=== PATIENT | female | born 1965 | race African-American/Black ===

== ENCOUNTER 2017-09-11 01:28 | Emergency (ER) | payer SELFPAY ==
[2017-09-11 02:27] VITALS: BP 150/88; PULSE 105; TEMP 98.5; BMI 31.6
[2017-09-11] MEDS ORDERED: FAMOTIDINE 20 MG/50 ML IVPB 20 MG/50 ML MG IVPB ONE (02:53)
--- NOTE | 2017-09-11 02:53 | PDOC ---
History of Present Illness - General Chief Complaint: Pain Stated Complaint: CHEST DISCOMFORT Time Seen by Provider: 09/11/17 02:34 History Source: Patient - History of Present Illness Initial Comments: 09/11/17 04:36 51 year old female with epigastric pain worse with laying down and cough denies NVD, left arm pain, diphoresis, pleurisy. pmhx: hypertension. Past History - Past Medical History Allergies/Adverse Reactions: Allergies Allergy/AdvReac Type Severity Reaction Status Date / Time No Known Allergies Allergy Verified 09/11/17 02:25 Home Medications: Ambulatory Orders Amlodipine Besylate [Norvasc -] 10 mg PO DAILY 09/11/17 Famotidine [Pepcid -] 40 mg PO DAILY #30 tablet 09/11/17 Hydrochlorothiazide [Hctz -] 25 mg PO DAILY 09/11/17 COPD: No HTN: Yes - Suicide/Smoking/Psychosocial Hx Smoking History: Never smoked Have you smoked in the past 12 months: No Information on smoking cessation initiated: No Hx Alcohol Use: No Drug/Substance Use Hx: No Substance Use Type: None Review of Systems - Review of Systems Able to Perform ROS?: Yes Is the patient limited [place] proficient: No Constitutional: No: Symptoms Reported, See HPI, Chills, Diaphoresis, Fever, Loss of Appetite, Malaise, Night Sweats, Weakness, Weight Stable, Unintentional Wgt. Loss, Unexplained wgt Loss, Other HEENTM: No: Symptoms Reported, See HPI, Eye Pain, Blurred Vision, Tearing, Recent change in vision, Double Vision, Cataracts, Ear Pain, Ocular Prothesis, Ear Discharge, Nose Pain, Nose Congestion, Tinnitus, Nose Bleeding, Hearing Loss , Throat Pain, Throat Swelling, Mouth Pain, Dental Problems, Difficulty Swallowing, Mouth Swelling, Other Respiratory: Yes: Cough. No: Symptoms reported, See HPI, Orthopnea, Shortness of Breath, SOB with Exertion, SOB at Rest, Stridor, Wheezing, Productive cough, Hemoptysis, Other Cardiac (ROS): Yes: Chest Pain. No: Symptoms Reported, See HPI, Edema, Irregular Heart Rate, Lightheadedness, Palpitations, Syncope, Chest Tightness, Other ABD/GI: Yes: Abdominal cramping (epigastric pain) : No: Symptoms Reported, See HPI, Burning, Dysuria, Discharge, Frequency, Flank Pain, Hematuria, Incontinence, Pain, Urgency, Testicular Mass, Testicular Swelling, Lesions, Testicular Pain, Other Musculoskeletal: No: Symptoms Reported, See HPI, Back Pain, Gout, Joint Pain, Joint Swelling, Muscle Pain, Muscle Weakness, Neck Pain, Joint Stiffness, Other Neurological: No: Symptoms reported, See HPI, Headache, Numbness, Paresthesia, Pre-Existing Deficit, Seizure, Tingling, Tremors, Weakness, Unsteady Gait, Ataxia, Dizziness, Other *Physical Exam - Vital Signs Last Vital Signs Temp Pulse Resp BP Pulse Ox 98.5 F 105 H 14 150/88 100 09/11/17 02:26 09/11/17 02:26 09/11/17 02:26 09/11/17 02:26 09/11/17 02:50 - Physical Exam General Appearance: Yes: Appropriately Dressed Respiratory/Chest: positive: Lungs Clear, Normal Breath Sounds. negative: Chest Tender Cardiovascular: positive: Regular Rhythm, Regular Rate Gastrointestinal/Abdominal: positive: Normal Bowel Sounds, Soft Musculoskeletal: positive: Normal Inspection Extremity: positive: Normal Capillary Refill, Normal Inspection, Normal Range of Motion Integumentary: positive: Normal Color, Dry, Warm Neurologic: positive: Fully Oriented, Alert, Normal Mood/Affect Heart Score/ECG Review - ECG Intrepretation Rhythm: Regular Rhythm Comment:: 09/11/17 04:48 normal sinus rhythm : 90bpm prolonged QT 380/ 464 ms ED Treatment Course - LABORATORY CBC & Chemistry Diagram: 09/11/17 03:10 09/11/17 03:10 Medical Decision Making - Medical Decision Making A: chest pain cbc cmp troponin EKG chest xray 09/11/17 04:35 reports feeling better. likely gastritis vs GERD 09/11/17 04:41 *DC/Admit/Observation/Transfer Diagnosis at time of Disposition: Gastritis, bile acid reflux, Chest pain of uncertain etiology Gastritis Qualifiers: Gastritis type: unspecified gastritis Chronicity: acute Gastritis bleeding: without bleeding Qualified Code(s): K29.00 - Acute gastritis without bleeding - Discharge Dispostion Disposition: HOME - Prescriptions Prescriptions: Famotidine [Pepcid -] 40 mg PO DAILY #30 tablet - Referrals Referrals: Narendra Camp MD [Staff Physician] - - Patient Instructions Printed Discharge Instructions: Gastroesophageal Reflux Disease (Alternative Therapy) Additional Instructions: start a bland diet eat > 2 hours before bedtime take pepcid as prescribed. follow up with your doctor as soon as possible return to the ER if symptoms worsen - Post Discharge Activity
[2017-09-11] MEDS ORDERED: ASPIRIN 81 MG CHEWABLE TABLETS ONE (02:55)
[2017-09-11] MEDS ORDERED: ASPIRIN COATED 81 MG TABLET.EC PO ONE (03:00)
[2017-09-11 03:26] LABS: BASO % 0.3 % (0-2.0); EOS % 1.3 % (0-4.5); HEMATOCRIT 42.1 % (32.4-45.2); LYMPH % 6.9 % (8-40); MCH 27.5 pg (25.7-33.7); MCHC 33.1 g/dl (32.0-36.0); MONO % 8.7 % (3.8-10.2); NEUT % 82.8 % (42.8-82.8); PLATELET COUNT 272 K/MM3 (134-434); RBC 5.07 M/mm3 (3.60-5.2); RDW 13.5 % (11.6-15.6); WHITE BLOOD COUNT 7.9 K/mm3 (4.0-10.0)
[2017-09-11 03:52] LABS: ALBUMIN 3.9 g/dl (3.4-5.0); ANION GAP 8 (8-16); BILIRUBIN,TOTAL 0.3 mg/dL (0.2-1.0); BLOOD UREA NITROGEN 13 mg/dL (7-18); CALCIUM 8.5 mg/dL (8.5-10.1); CHLORIDE 105 mmol/L (98-107); CO2 29 mmol/L (21-32); CREATININE 0.7 mg/dL (0.55-1.02); GLUCOSE,RANDOM 105 mg/dL (74-106); LIPASE 128 U/L (73-393); POTASSIUM 3.4 mmol/L (3.5-5.1); SGOT/AST 12 U/L (15-37); SGPT/ALT 17 U/L (12-78); SODIUM 142 mmol/L (136-145); TOT PROT 7.4 g/dl (6.4-8.2)
[2017-09-11 03:53] LABS: ALK PHOS 80 U/L (45-117)
[2017-09-11 04:21] LABS: URINE APPEARANCE CLEAR; URINE BILIRUBIN NEGATIVE (NEGATIVE); URINE BLOOD 2+ (NEGATIVE); URINE COLOR STRAW; URINE GLUCOSE (UA) NEGATIVE (NEGATIVE); URINE KETONE NEGATIVE (NEGATIVE); URINE LEUK ESTERASE TRACE (NEGATIVE); URINE NITRITE NEGATIVE (NEGATIVE); URINE PROTEIN NEGATIVE (NEGATIVE); URINE UROBILINOGEN NEGATIVE mg/dL (0.2-1.0)
[2017-09-11 04:37] LABS: EPI CELLS RARE /HPF (FEW)
--- NOTE | 2017-09-11 08:36 | EKG ---
Test Reason : Blood Pressure : / mmHG Vent. Rate : 090 BPM Atrial Rate : 090 BPM P-R Int : 170 ms QRS Dur : 076 ms QT Int : 380 ms P-R-T Axes : 065 011 017 degrees QTc Int : 464 ms NORMAL SINUS RHYTHM NONSPECIFIC T WAVE ABNORMALITY PROLONGED QT Confirmed by Benito Lazaro MD ([id number]) on 09/11/2017 8:36:16 AM Referred By: Confirmed By:Benito Lazaro MD
== END 2017-09-11 05:01 | disposition home or self-care (01) ==
LOC: JER 01:28
PROC: 3E033GC Introduction of Other Therapeutic Substance into Peripheral Vein, Percutaneous Approach (ICD-10-PCS; principal; 2017-09-11)
DX: K29.60 Other gastritis without bleeding (principal); K21.9 Gastro-esophageal reflux disease without esophagitis
CPT/HCPCS: 36415; 71046-TC-FY; 80053; 81003; 81015; 82550; 83690; 84484; 84703; 85025; 93005; 93010; 99285-25

== ENCOUNTER 2019-07-31 07:40 | Day surgery (SDC) | payer OTHER ==
--- NOTE | 2019-07-28 09:12 | HP ---
Admitting History and Physical - Primary Care Physician PCP: Kush Raymond - Admission Chief Complaint: right breast cancer History of Present Illness: 53 year old perimenapausal female with no family H/O breast cancer who was found to have a suspicious mammogram and US 04/2019. It showed a right density 12:00 1.3 cm 7 cm FN with a separate 11:00 dnsity 8 cm FN. Diagnostic mammogram confirmed right 12:00 density and US core biopsy at 12:00( 05/2019) showed Invasive lobular carcinoma ER/CA+Her2-. The 11:00 density was not visualized at the time of the biopsy. 06/2019 Breast MRI showed .9 mass at 11 to 12:00 right breast newly dignosed breast cancer and suspicious right axillary lymph node suggesting US. Right axillary Us negative History Source: Patient Limitations to Obtaining History: No Limitations - Past Medical History Cardiovascular: Yes: HTN Additional Past Medical History: fibroids - Smoking History Smoking history: Never smoked Have you smoked in the past 12 months: No - Alcohol/Substance Use Hx Alcohol Use: No Home Medications - Allergies Allergies/Adverse Reactions: Allergies Allergy/AdvReac Type Severity Reaction Status Date / Time No Known Allergies Allergy Verified 09/11/17 02:25 - Home Medications Home Medications: Ambulatory Orders Amlodipine Besylate [Norvasc -] 10 mg PO DAILY 09/11/17 Famotidine [Pepcid -] 40 mg PO DAILY #30 tablet 09/11/17 Hydrochlorothiazide [Hctz -] 25 mg PO DAILY 09/11/17 Family Medical History Family History: Denies Physical Examination Constitutional: Yes: Well Nourished Breast(s): Yes: Other (D sized cups no palpable densitites or adnopathy bilaterally poist bx changes right 12:00) Problem List - Problems (1) Carcinoma of right breast Code(s): C50.911 - MALIGNANT NEOPLASM OF UNSP SITE OF RIGHT FEMALE BREAST Qualifiers: Breast location: overlapping sites of breast Estrogen receptor status: positive Patient sex: female Qualified Code(s): C50.811 - Malignant neoplasm of overlapping sites of right female breast; Z17.0 - Estrogen receptor positive status [ER+] Assessment/Plan Right breast wide excision, mammogram needle localization. sentenel node biospy , possible axillary node dissection, lymphoscintogram
[2019-07-28 10:00] VITALS: BMI 33.9
[2019-07-31] MEDS ORDERED: LIDOCAINE HCL 1%, 10 MG/ML (20ML VIAL) ONE ×2 (12:28→12:37)
[2019-07-31] MEDS ORDERED: BUPIVACAINE HCL 0.25% 125 MG/50 ML VIAL ONE (12:37)
[2019-07-31] MEDS ORDERED: ISOSULFAN BLUE 10 MG/ML VIAL SQ ONE (12:37)
[2019-07-31] MEDS ORDERED: MIDAZOLAM HCL 2 MG/2 ML SINGLE DOSE VIAL ONE (13:02)
[2019-07-31] MEDS ORDERED: PROPOFOL 20 ML ONE ×4 (13:07→14:01)
[2019-07-31] MEDS ORDERED: SUCCINYLCHOLINE CHLORIDE 200 MG/10 ML SYRINGE ONE (13:07)
[2019-07-31] MEDS ORDERED: DEXAMETHASONE SOD PHOSPHATE 4 MG/1 ML VIAL ONE (13:12)
[2019-07-31] MEDS ORDERED: ONDANSETRON 4 MG/2 ML VIAL ONE ×2 (13:12→15:30)
[2019-07-31] MEDS ORDERED: ceFAZolin SODIUM 1 GM VIAL ONE (13:19)
[2019-07-31] MEDS ORDERED: ONDANSETRON 4 MG/2 ML VIAL IVPUSH PRN ×2 (14:17→15:11)
[2019-07-31] MEDS ORDERED: oxyCODONE HCL 5 MG TABLET PO PRN (14:17)
[2019-07-31] MEDS ORDERED: LACTATED RINGERS SOLUTION 1,000 ML IV SCH (14:30)
[2019-07-31] MEDS ORDERED: BUPIVACAINE HCL/PF 0.25% (2.5MG/ML) 10 ML VIAL IJ ONE (14:50)
[2019-07-31] MEDS ORDERED: KETOROLAC TROMETHAMINE 30 MG/1 ML VIAL IVPUSH PRN (15:11)
[2019-07-31] MEDS ORDERED: DEXTROSE 5%-0.45% SALINE 1,000 ML IV SCH (15:15)
[2019-07-31] MEDS ORDERED: KETOROLAC TROMETHAMINE 30 MG/1 ML VIAL ONE (15:30)
[2019-07-31 16:41] VITALS: TEMP 98
[2019-07-31 17:39] VITALS: BP 145/79; PULSE 72
--- NOTE | 2019-07-31 23:16 | OP ---
DATE OF OPERATION: 07/31/2019 PREOPERATIVE DIAGNOSIS: Right breast cancer, overlapping regions. POSTOPERATIVE DIAGNOSIS: Right breast cancer, overlapping regions. PROCEDURE: Right breast partial mastectomy with sentinel lymph node biopsy and mammographic needle localization with 5 x 4 cm tissue transfer closure. ANESTHESIA: General laryngeal mask airway anesthesia. SURGEON: Gloria Raymond MD. SYSTEM DEVELOPMENT MANAGER: KARTHIK Thacker. COMPLICATIONS: There were no complications. DESCRIPTION OF PROCEDURE: Briefly, the patient is a 53-year-old G1, P1 postmenopausal female of /[place] descent. She underwent a routine mammography April 2019 showing a right breast, 12 o'clock, 1.3-cm suspicious density 7 cm from the nipple with a separate right breast at 11 o'clock density 8 cm from the nipple. Ultrasound guided core biopsy showed the 12 o'clock density to be an infiltrating lobular cancer, which was ER/SD positive, HER2/alyx negative with a Ki-67 of 23%. The 11 o'clock density was no longer seen and felt to be benign. She had no adenopathy. MRI showed localized cancer. The patient was advised for undergoing a right breast partial mastectomy and sentinel lymph node biopsy. She was brought in for the procedure on July 31, 2019, and underwent a needle localization of the clip in the right breast 12 o'clock region as well as a lymphoscintigraphy at [facility] in the morning and then was brought to the [place] holding area. In the holding area, site verification was made, and informed consent as obtained. She was brought into the operating room, laid on the OR table in a supine position. Venodynes were placed on the lower extremities prior to induction. She received a gram of Ancef prior to incision. She underwent general laryngeal mask airway anesthesia, and the right breast was sterilely prepped and draped in the usual fashion with the wire prepped in the field. 3 mL of Lymphazurin blue were injected intradermally and peritumorally around the needle localization site at the 12 o'clock region of the right breast. Timeout was performed. The right breast sentinel lymph node biopsy was first performed. An incision was made just below the hair-bearing area of the right axilla and dissection was undertaken, and a blue lymphatic was easily seen coursing to a bluish hot lymph node with a 10-second gamma count of 1492, which was labeled sentinel lymph node 1 and sent to pathology in formalin. No other blue or hot nodes were found, and background counts after removal of this node was 227. Hemostasis was achieved, and the wound was copiously irrigated with warm, sterile saline. The active wound was then closed using a 2-0 plain suture to close the deep tissues, and then the skin was closed using interrupted 3-0 deep dermal Vicryl suture in a running 4-0 subcuticular Biosyn suture. The wide excision was then undertaken around the 12 o'clock region of the right breast. A curvilinear incision was made around the 12 o'clock region of the right breast just underneath the needle localization site. Dissection was undertaken around the needle localization, and the breast tissue was completely removed from around the wire with the wire in the middle of the specimen. The specimen was removed and was oriented with a long lateral, short superior suture, and specimen radiographs showed removal of the clip in question. Hemostasis was achieved. Separate margins were then taken on the superior, inferior, medial, lateral, deep, and anterior aspects, with the suture marking the biopsy cavity of each of these margins. They were each sent separately to pathology as specimen in formalin. Again, hemostasis was achieved. The wound was irrigated, and a 5 x 4 cm tissue transfer closure was accomplished by undermining the breast tissue and reapproximating the breast tissue to fill the defect using 2-0 plain suture. The skin was closed using interrupted 3-0 deep dermal Vicryl suture and a running 4-0 subcuticular Biosyn suture. Mastisol, Steri-Strips were applied over the wounds, and compressive dressing placed over this. She was placed in a surgical bra. The patient had laryngeal mask airway tube removed at the end of the case and will be recovered in the post anesthesia care unit. She will be recovered and then brought back to ambulatory surgery and discharged home the same day once discharge criteria are met. She will follow up in the office in 1 week for a formal wound pathology check. All sponge, needle counts were correct at the end of the case, and estimated blood loss was about 20 mL. GLORIA RAYMOND M.D. [id number]
--- NOTE | 2019-08-05 12:17 | PATH ---
Surgical Pathology Report Patient Name: ELTON CHADWICK [facility]. Rec. #: [id number] /Age/Gender: 1965 (Age: 53) / F Account: [id number] Location: [facility] AMBULATORY Taken: 07/31/2019 Received: 07/31/2019 Reported: 08/06/2019 Physicians: Kush Raymond M.D. Specimen(s) Received A: RIGHT AXILLARY SENTINEL LYMPH NODE #1 B: RIGHT BREAST WIDE EXCISION C: RIGHT BREAST SUPERIOR MARGIN D: RIGHT BREAST MEDIAL MARGIN E: RIGHT BREAST INFERIOR MARGIN F: RIGHT BREAST LATERAL MARGIN G: RIGHT BREAST DEEP MARGIN H: RIGHT BREAST ANTERIOR MARGIN Clinical History Invasive right 12:00 [facility] Final Diagnosis A. AXILLARY SENTINEL LYMPH NODE #1, RIGHT, EXCISION: ONE LYMPH NODE NEGATIVE FOR CARCINOMA ON H & E AND CONFIRMED BY CYTOKERATIN AE1/3 IMMUNOHISTOCHEMICAL STAIN (0/1). B. BREAST, RIGHT, WIDE EXCISION: INVASIVE LOBULAR CARCINOMA, CLASSICAL TYPE (TUBULE SCORE: 3/3, NUCLEAR GRADE: 2/3, MITOTIC SCORE: 1/3; TOTAL ARCADIO SCORE: 6/9). INVASIVE CARCINOMA MEASURES 1.9 CM IN GREATEST MICROSCOPIC DIMENSION. LOBULAR CARCINOMA IN SITU (LCIS), CLASSICAL TYPE. NO LYMPHOVASCULAR INVASION IDENTIFIED. SURGICAL MARGINS ARE UNINVOLVED BY CARCINOMA; INVASIVE CARCINOMA IS 5 MM FROM CLOSEST LATERAL MARGIN. SEE SPECIMEN C-H FOR FINAL MARGINS. PRIOR BIOPSY SITE CHANGES PRESENT. REMAINDER OF BREAST PARENCHYMA SHOWS ATYPICAL LOBULAR HYPERPLASIA AND FIBROCYSTIC CHANGES INCLUDING STROMAL FIBROSIS, MICROCYSTS, APOCRINE METAPLASIA, AND COLUMNAR CELL CHANGES. PATHOLOGIC STAGE (pTNM): pT1c pN0(sn). SEE INVASIVE CARCINOMA CASE SUMMARY BELOW. SEE COMMENT. C. BREAST, RIGHT, SUPERIOR MARGIN, EXCISION: LOBULAR CARCINOMA IN SITU (LCIS), CLASSICAL TYPE. D. BREAST, RIGHT, MEDIAL MARGIN, EXCISION: LOBULAR CARCINOMA IN SITU (LCIS), CLASSICAL TYPE. E. BREAST, RIGHT, INFERIOR MARGIN, EXCISION: BREAST PARENCHYMA WITH FOCAL ATYPICAL LOBULAR HYPERPLASIA. F. BREAST, RIGHT, LATERAL MARGIN, EXCISION: BENIGN BREAST PARENCHYMA. G. BREAST, RIGHT, DEEP MARGIN, EXCISION: BENIGN BREAST PARENCHYMA H. BREAST, RIGHT, ANTERIOR MARGIN, EXCISION: BENIGN BREAST PARENCHYMA. Comment: Immunohistochemical stains performed and interpreted at [facility] show the tumor is positive for cytokeratin AE1/3. E-Cadherin is negative in the invasive carcinoma and LCIS (blocks B2, D3, E2). Positive and negative controls (internal if applicable) show appropriate results. Comments Breast Invasive Carcinoma: Surgical Pathology Case Summary (Based on AJCC TNM 8 th edition) Procedure _X_ Excision (less than total mastectomy) Specimen Laterality _X_ Right Tumor Size _X_ Greatest dimension of largest invasive focus >1 mm (millimeters): 19 mm Histologic Type _X_ Invasive lobular carcinoma Histologic Grade ([place] Histologic Score) Glandular (Acinar)/Tubular Differentiation _X_ Score 3 (<10% of tumor area forming glandular/tubular structures) Nuclear Pleomorphism _X_ Score 2 Mitotic Rate _X_ Score 1 Overall Grade _X_ Grade 2 (scores of 6) Tumor Focality _X_ Single focus of invasive carcinoma Ductal Carcinoma In Situ (DCIS) _X_ No DCIS in specimen Margins Invasive Carcinoma Margins _X_ Uninvolved by invasive carcinoma Distance from closest margin (millimeters): 5 mm in wide excision (B), negative in final lateral margin (F) Closest margin: Lateral DCIS Margins _X_ No DCIS in specimen Regional Lymph Nodes _X_ Uninvolved by tumor cells Number of Lymph Nodes Examined: 1 Number of [place] Nodes Examined: 1 Treatment Effect _X_ No known presurgical therapy Lymphovascular Invasion _X_ Not identified Pathologic Stage Classification (pTNM, AJCC 8th Edition) Primary Tumor (Invasive Carcinoma) (pT) _X__ pT1c: Tumor >10 mm but =20 mm in greatest dimension Regional Lymph Nodes (pN) Category (pN) _X_ pN0: No regional lymph node metastasis identified or ITCs only Biomarker Studies Results of ER and OK studies performed on this specimen (block#B2) at [facility] are as follows: ER (clone [id number] mouse monoclonal antibody by [employer]):~70% nuclear staining with weak to moderate intensity (Positive). OK (clone16 mouse monoclonal antibody by [employer]) ~60% nuclear staining with weak to moderate intensity (Positive). Results of Her2 and Ki67 studies will be reported separately in an addendum. Positive and negative controls (internal if applicable) show appropriate results. Formalin fixation and cold ischemic times are within current ASCO/CAP recommendations for ER, OK and Her2 testing. Electronically Signed Sonia Connell M.D. Addendum Reported: 08/06/2019 Addendum Diagnosis Results of Her2 (IHC) & Ki-67 studies performed on block "B2" at [place], [place] ([id number]) are as follows: Her2 IHC (EP3 from [employer], formerly known as [id number], using [employer] Polymer Refine detection kit): 0 (Negative) Ki-67: ~25% (Intermediate proliferative index). Positive and negative controls (internal if applicable) show appropriate results. Sonia Connell M.D. Gross Description A. Received in formalin labeled "right axillary sentinel lymph node #1," is a 1.6 x 1.0 x 0.6 cm neely lymph node. The specimen is bisected and entirely submitted in one cassette. B. Received in formalin, labeled "right breast wide excision," is a 7.3 x 4.8 x 4.2 cm. neely-yellow, irregular, portion of fibroadipose tissue with a needle localization wire present. There is a short suture marking the superior aspect and a long suture marking the lateral aspect, per the surgeon. There is no skin or nipple present. The specimen is inked as follows: Superior blue; inferior green; anterior and lateral red; medial yellow; deep black. The specimen is serially sectioned from anterior to deep. Sectioning reveals a 1.4 x 1.2 x 1.1 cm neely, indurated, ill-defined mass containing a morrison metallic biopsy clip. The mass is 0.2 cm from the lateral margin and 0.5 cm from the inferior margin. The remaining margins appear clear of the mass. Hand Trucker sections are submitted in 7 cassettes as follows: 1-full face section of mass with lateral and inferior margins; 2-additional full face section of mass with lateral and inferior margins; 3-medial margin 4-superior margin; 5-6-deep margin; 7-anterior margin. Time to formalin fixation: 20 minutes Total formalin fixation time: Approximately 28 hours. C. Received in formalin labeled "right breast superior margin," is a 3.7 x 2.2 x 0.6 cm portion of fibroadipose tissue with a suture marking the biopsy cavity side, per the surgeon. The new margin is inked black and the specimen is serially sectioned. The specimen is entirely submitted in 4 cassettes. D. Received in formalin labeled "right breast medial margin," is a 2.6 x 2.5 x 0.9 cm portion of fibroadipose tissue with a suture marking the biopsy cavity side, per the surgeon. The new margin is inked black and the specimen is serially sectioned. The specimen is entirely submitted in 3 cassettes. E. Received in formalin labeled "right breast inferior margin," is a 2.1 x 2.0 x 0.9 cm portion of fibroadipose tissue with a suture marking the biopsy cavity side, per the surgeon. The new margin is inked black and the specimen is serially sectioned. The specimen is entirely submitted in 2 cassettes. F. Received in formalin labeled "right breast lateral margin," is a 3.3 x 2.7 x 1.0 cm portion of fibroadipose tissue with a suture marking the biopsy cavity side, per the surgeon. The new margin is inked black and the specimen is serially sectioned. The specimen is entirely and sequentially submitted in 4 cassettes. G. Received in formalin labeled "right breast deep margin," is a 2.6 x 2.5 x 0.9 cm portion of fibroadipose tissue with a suture marking the biopsy cavity side, per the surgeon. The new margin is inked black and the specimen is serially sectioned. The specimen is entirely submitted in 3 cassettes. H. Received in formalin labeled "right breast anterior margin," is a 2.4 x 1.9 x 0.6 cm portion of fibroadipose tissue with a suture marking the biopsy cavity side, per the surgeon. The new margin is inked black and the specimen is serially sectioned. The specimen is entirely submitted in 2 cassettes. DL08/01/2019 saudi08/01/2019
== END 2019-07-31 17:45 | disposition home or self-care (01) ==
LOC: FASU 07:40
PROVIDERS: ATTEND Surgery Surgical Oncology
PROC: 0HBT0ZZ Excision of Right Breast, Open Approach (ICD-10-PCS; principal; 2019-07-31 13:33)
DX: C50.811 Malignant neoplasm of overlapping sites of right female breast (principal); Z17.0 Estrogen receptor positive status [ER+]; I10 Essential (primary) hypertension
CPT/HCPCS: 19281; 76098-TC-FY; 78195-TC; 84703; 88307-TC; 88341-TC; 88342-TC; 94760; A9541